=== PATIENT | female | born 1975 | race Caucasian/White ===

== ENCOUNTER 2024-07-20 12:38 | Outpatient (RCR) | payer OTHER, SELFPAY | END 2024-07-20 23:59 | disposition home or self-care (01) | LOC: ROT 12:38 | PROVIDERS: ATTENDING PHYSICIAN Physician Assistant; FAMILY PHYSICIAN Family Medicine | DX: M77.11 Lateral epicondylitis, right elbow (principal); Z73.6 Limitation of activities due to disability | CPT/HCPCS: 97010; 97035; 97110; 97140; 97166; 97535 ==

== ENCOUNTER 2024-08-10 12:04 | Outpatient (RCR) | payer OTHER, SELFPAY | END 2024-08-10 23:59 | disposition home or self-care (01) | LOC: ROT 12:04 | PROVIDERS: ATTENDING PHYSICIAN Physician Assistant; FAMILY PHYSICIAN Family Medicine | DX: M77.11 Lateral epicondylitis, right elbow (principal); Z73.6 Limitation of activities due to disability | CPT/HCPCS: 97010; 97110; 97140; 97760 ==